=== PATIENT | female | born 1935 | race Caucasian/White ===

== ENCOUNTER → 2019-10-12 | Outpatient (CLI) | payer OTHER | END | disposition home or self-care (01) | LOC: OIH 15:34 | PROVIDERS: ATTEND Internal Medicine | DX: S32.5 Fracture of pubis (principal); X58.XXXD Exposure to other specified factors, subsequent encounter; M25.551 Pain in right hip | CPT/HCPCS: 73502 ==

== ENCOUNTER → 2020-06-09 | Outpatient (CLI) | payer OTHER | END | disposition home or self-care (01) | LOC: OIH 14:42 | PROVIDERS: ATTEND Internal Medicine | DX: M19.071 Primary osteoarthritis, right ankle and foot (principal); M47.814 Spondylosis without myelopathy or radiculopathy, thoracic region; M43.8X4 Other specified deforming dorsopathies, thoracic region | CPT/HCPCS: 71100; 73620 ==